=== PATIENT | female | born 1950 | race Asian ===

== ENCOUNTER 2023-02-27 20:09 | Emergency (ER) | payer OTHER ==
[2023-02-27 20:23] VITALS: BMI 24.2
[2023-02-27] MEDS ORDERED: ACETAMINOPHEN 500 MG TABLET (FP) PO ONE (21:10)
[2023-02-27] MEDS ORDERED: LIDOCAINE 5% TOPICAL PATCH TP ONE (21:10)
[2023-02-27] MEDS ORDERED: LIDOCAINE 4% PATCH TP ONE (21:15)
[2023-02-27] MEDS ORDERED: ACETAMINOPHEN 325 MG TABLET (FP) ONE (21:15)
[2023-02-27] MEDS ORDERED: ACETAMINOPHEN 500 MG TABLET (FP) ONE (21:18)
[2023-02-27 22:51] VITALS: BP 137/82; PULSE 85; RESP 16; TEMP 97.5
[2023-02-28] MEDS ORDERED: LIDOCAINE PATCH REMOVAL MC ONE (09:00)
== END 2023-02-28 00:05 | disposition home or self-care (01) ==
LOC: JER 20:09
DX: S13.4XXA Sprain of ligaments of cervical spine, initial encounter (principal); M54.9 Dorsalgia, unspecified; R07.9 Chest pain, unspecified; R07.81 Pleurodynia; V89.2XXA Person injured in unspecified motor-vehicle accident, traffic, initial encounter; Y93.I9 Activity, other involving external motion; Y92.410 Unspecified street and highway as the place of occurrence of the external cause
CPT/HCPCS: 71046-TC-FY; 71111-TC-FY; 71120-TC-FY; 93005; 93010; 99284-25